=== PATIENT | male | born 1995 | race Caucasian/White ===

== ENCOUNTER 2017-02-11 08:04 | Emergency (ER) | payer OTHER ==
[~2017-02-11] VITALS: Ht 180.3 cm; Wt 87.2 kg
[2017-02-11 08:15] VITALS: BP 148/78
[2017-02-11] MEDS ORDERED: ZOLOFT25 MG PO (08:18)
[2017-02-11] MEDS ORDERED: NORCO 5/3251 TABLET PO (08:54)
== END 2017-02-11 09:50 | disposition home or self-care (01) ==
LOC: EME 08:04 → EDBD 08:04 → EME 09:50
PROC: 2W3RX1Z Immobilization of Left Lower Leg using Splint (ICD-10-PCS; principal; 2017-02-11)
DX: S82.302A Unspecified fracture of lower end of left tibia, initial encounter for closed fracture (principal); S82.832A Other fracture of upper and lower end of left fibula, initial encounter for closed fracture; W00.0XXA Fall on same level due to ice and snow, initial encounter
CPT/HCPCS: 73610; 99281; 99284